=== PATIENT | male | born 1990 | race Caucasian/White ===

== ENCOUNTER 2019-06-12 22:06 | Emergency (ER) | payer OTHER ==
[~2019-06-12] VITALS: Ht 185.4 cm; Wt 80.7 kg
[2019-06-12 22:12] VITALS: BP 119/73
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
[2019-06-12] MEDS ORDERED: KETOROLAC 60 MG/2 ML VIAL IM ONE (22:35)
--- NOTE | 2019-06-12 22:46 | NUR ---
PT TAKEN TO CT
[2019-06-12 23:34] VITALS: BP 119/73
== END 2019-06-12 23:35 | disposition home or self-care (01) ==
LOC: MED 22:06
DX: S06.0X1A Concussion with loss of consciousness of 30 minutes or less, initial encounter (principal); V49.9XXA Car occupant (driver) (passenger) injured in unspecified traffic accident, initial encounter; Y93.89 Activity, other specified; Y92.89 Other specified places as the place of occurrence of the external cause; Y99.8 Other external cause status
CPT/HCPCS: 70450; 72125; 96372; 99285; J1885